=== PATIENT | female | born 2000 | race Caucasian/White ===

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

== ENCOUNTER 2020-11-30 16:24 | Emergency (ER) | payer BC ==
[~2020-11-30] VITALS: Ht 152.4 cm; Wt 57.3 kg
[~2020-11-30 16:24] MED LIST: LO LOESTRIN FE1 TAB PO; NORCO 325 MG-51 TAB PO
[2020-11-30 16:43] VITALS: TEMP 98.7
[2020-11-30 22:10] VITALS: BP 94/49; PULSE 68
== END 2020-11-30 22:10 | disposition home or self-care (01) ==
LOC: COL.ER 16:24
DX: B34.9 Viral infection, unspecified (principal); R10.31 Right lower quadrant pain; F17.200 Nicotine dependence, unspecified, uncomplicated; Z20.822 Contact with and (suspected) exposure to COVID-19

== ENCOUNTER → 2021-03-30 | Outpatient (CLI) | payer BC | LOC: MC.RAD 09:59 | DX: N64.4 Mastodynia (principal); N63.21 Unspecified lump in the left breast, upper outer quadrant ==

== ENCOUNTER 2021-07-22 19:59 | Emergency (ER) | payer BC ==
[~2021-07-22] VITALS: Ht 157.5 cm; Wt 59.1 kg
[2021-07-22 22:06] VITALS: BP 110/71; PULSE 83; TEMP 98.7
== END 2021-07-22 22:06 | disposition home or self-care (01) ==
LOC: COL.ER 19:59
DX: R51.9 Headache, unspecified (principal)
CPT/HCPCS: J1200; J1885

== ENCOUNTER 2022-07-08 15:50 | Emergency (ER) | payer SELFPAY ==
[~2022-07-08] VITALS: Ht 157.5 cm; Wt 47.3 kg
[2022-07-08 16:08] VITALS: TEMP 98.2
[2022-07-08 16:52] LABS: BASO % 0.5 % (0.0-2.0); EOS # 0.2 K/mm3 (0.0-0.7); EOS % 2.4 % (0.0-4.0); GRAN % 64.9 % (42.2-75.2); HEMATOCRIT 38.2 % (37.0-47.0); HEMOGLOBIN 12.8 g/dl (12.5-16.0); LYMPH # 1.6 K/mm3 (1.2-3.4); LYMPH % 25.7 % (20.0-51.0); MEAN CELL VOLUME 87 fl (80.0-100.0); MEAN CORPUSCULAR HEMOGLOBIN 29 pg (27-31); MEAN CORPUSCULAR HGB CONC 34 g/dl (33.0-37.0); MEAN PLATELET VOLUME 9.1 fl (7.4-10.4); MONO # 0.4 K/mm3 (0.1-0.6); MONO % 6.3 % (1.7-9.3); PLATELET COUNT 330 K/mm3 (130-400); REDCELL DISTRIBUTION WIDTH-CV 13.2 % (11.5-14.5)
[2022-07-08 17:07] LABS: ALANINE AMINOTRANSFERASE 22 U/L (0-55); ALBUMIN 4.4 gm/dL (3.5-5.0); ALKALINE PHOSPHATASE 82 U/L (40-150); ANION GAP 12 mmol/L (7-16); AST,SGOT 24 U/L (5-34); BILIRUBIN,TOTAL 0.2 mg/dL (0.2-1.2); BLOOD UREA NITROGEN 12 mg/dL (7-19); C-REACTIVE PROTEIN < 0.02 mg/dL (0.00-0.50); CALCIUM 9.6 mg/dL (8.4-10.2); CARBON DIOXIDE 21 mmol/L (22-29); CHLORIDE 106 mmol/L (98-107); CREATININE, serum 0.74 mg/dL (0.57-1.11); GLUCOSE 95 mg/dL (70-99); POTASSIUM 4.7 mmol/L (3.5-4.5); SODIUM 139 mmol/L (136-145); TOTAL PROTEIN 7.9 gm/dL (6.2-8.1)
[2022-07-08 17:27] LABS: TSH w REFLEX 0.466 uIU/mL (0.350-4.940)
[2022-07-08 17:59] VITALS: BP 129/79; PULSE 87
== END 2022-07-08 17:59 | disposition home or self-care (01) ==
LOC: COL.ER 15:50
PROVIDERS: Family Medicine
DX: R00.0 Tachycardia, unspecified (principal)
CPT/HCPCS: J7120

== ENCOUNTER 2023-10-06 00:20 | Emergency (ER) | payer BC ==
[~2023-10-06] VITALS: Ht 157.5 cm; Wt 59.1 kg
[~2023-10-06 00:20] MED LIST changes: +AMOXICILLIN 8751 TAB PO
[2023-10-06 00:33] VITALS: TEMP 98.3
[2023-10-06 00:58] VITALS: BP 120/78; PULSE 87
== END 2023-10-06 01:00 | disposition home or self-care (01) ==
LOC: COL.ER 00:20
DX: S61.213A Laceration without foreign body of left middle finger without damage to nail, initial encounter (principal); W26.0XXA Contact with knife, initial encounter